=== PATIENT | male | born 1965 | race Caucasian/White ===

== ENCOUNTER 2019-02-14 23:03 | Inpatient (IN) | payer OTHER, MEDICAID ==
[~2019-02-14] VITALS: Ht 167.6 cm; Wt 70.1 kg
[~2019-02-14 23:03] MED LIST: AMITRIPTYLINE50 MG PO; CYCLOBENZAPRINE10 MG PO; MAG SALT PO; NAPROSYN500 MG PO; TOPAMAX25 M3 PO
[2019-02-14 23:05] VITALS: BP 203/126
[2019-02-14 23:20] VITALS: BP 217/177
[2019-02-14 23:44] VITALS: BP 156/105
[2019-02-14 23:45] LABS: BASO # 0.1 10*3/uL (0.0-0.1); BASO % 0.8 % (0.0-1.0); EOS # 0.4 10*3/uL (0.0-0.4); EOS % 3.2 % (1.0-4.0); HEMATOCRIT 42.2 % (42.0-52.0); HEMOGLOBIN 14.2 g/dl (14.0-18.0); LYMPH # 3.1 10*3/uL (1.3-4.4); LYMPH % 24.8 % (27.0-41.0); MEAN CELL VOLUME 94.4 fl (80.0-94.0); MEAN CORPUSCULAR HGB 31.8 pg (27.0-31.0); MEAN CORPUSCULAR HGB CONC 33.6 g/dl (33.0-37.0); MEAN PLATELET VOLUME 10.6 fl (9.6-12.3); MONO # 1.4 10*3/uL (0.1-1.0); MONO % 10.7 % (3.0-9.0); NEUT # 7.6 10*3/uL (2.3-7.9); NEUT % 60.1 % (47.0-73.0); PLATELET COUNT AUTOMATED 254 10*3/uL (130-400); RED BLOOD COUNT 4.47 10*6/uL (4.50-5.90); RED CELL DISTRI WIDTH 14.2 % (0-14.5); WHITE BLOOD COUNT 12.7 10*3/uL (4.8-10.8)
[2019-02-14 23:56] LABS: ACT PARTIAL THROMBO TIME 24.8 SECONDS (20.0-32.1); INTERNATIONAL NORM RATIO 0.9 (2.0-3.5)
[2019-02-15 00:01] LABS: ALBUMIN 3.7 gm/dl (3.1-4.5); ALKALINE PHOSPHATASE 92 U/L (45-117); BUN 25 mg/dl (7-24); CHLORIDE 111 mmol/L (98-107); CREATININE 1.37 mg/dL (0.70-1.30); POTASSIUM 3.8 mmol/L (3.5-5.1); SGOT/AST 17 IU/L (3-35); SGPT/ALT 26 U/L (12-78); SODIUM 141 mmol/L (136-145); TOTAL PROTEIN 7.2 gm/dL (6.4-8.2)
[2019-02-15 00:02] LABS: TROPONIN I < 0.015 ng/ml (<0.045)
[2019-02-15 00:11] VITALS: BP 164/108
[2019-02-15 00:22] VITALS: BP 164/92
--- NOTE | 2019-02-15 01:15 | NUR ---
A 53, admitted to 5E, under the services of STACI Moreno DO with a diagnosis of CHEST PAIN. Chief complaint is CHEST PAIN. Patient arrived via stretcher from ER. Monitor applied. Initial assessment completed. Vital signs taken and recorded. STACI MORENO DO notified of admission to the unit. Orders received. See assessment for past medical history, medications and allergies. Clothing/patient valuable form completed. EMILY RAMIREZ
--- NOTE | 2019-02-15 01:52 | NUR ---
UNABLE TO VERIFY PTS HOME MEDS AT THIS TIME. PT DOES NOT KNOW DOSAGE AND FREQUENCY OF MEDS. PT USES [facility]. WILL NEED TO CALL PHARMACY IN AM.
--- NOTE | 2019-02-15 01:58 | NUR ---
PT MEDICATED WITH PRN MORPHINE 12/10 AT THIS TIME. WILL CHECK EFFECTIVENESS. CALL LIGHT WITHIN REACH. WILL CONTINUE TO MONITOR.
--- NOTE | 2019-02-15 02:15 | NUR ---
PT STATES MORPHINE WAS SOMEWHAT EFFECTIVE RATING PAIN A 6/10. CALL LIGHT WITHIN REACH. WILL CONTINUE TO MONITOR.
--- NOTE | 2019-02-15 02:43 | NUR ---
ANSWERING SERVICE CALLED AT THIS TIME REGARDING CONSULT.
--- NOTE | 2019-02-15 05:20 | NUR ---
RIHC WILBURN [id number] Please refer to the physician's history and physical for past medical history, comorbid conditions, and allergies. Diagnosis: CHEST PAIN Hussein Score: , WOUND DESCRIPTIONS: Wound Number: 1 Location of the wound: right 2nd toe Thickness: Partial Size: 0.3cm x 0.2cm x <0.1cm Tunneling: none Undermining: none Sinus Tract: none Presence of Exudate: none Amount: None Color: Red Odor: None Periwound Skin Appearance: Normal Wound edges: approximated Pain (associated with wound): none at time of assessment How does patient state this happened? pt stated this comes and goes Surface the patient is resting on: Isoflex SKIN PREVENTION RECOMMENDATION: 1. Pressure redistribution support surface as appropriate 2. Elevate heels 3. Remove boots/TEDS every shift and reapply 4. Head of bed 30 degrees as tolerated 5. Assess nutrition and hydration 6. Manage moisture 7. Avoid the use of containment devices while in bed 8. Use absorptive products on surfaces limit layers of linens on bed 9. Turn and reposition every 1-2 hours in bed and every 1 hour in chair as tolerated 10. Weight shifts every 15 minutes while up in chair 11. Offloading with pillows or device to keep heels elevated off bed 12. Monitor skin at least every shift 13. Inspect under medical devices twice a day WOUND TREATMENT RECOMMENDATIONS: Partial thickness guidelines: Cleanse right 2nd toe with nss and apply sureprep around wound hydrogel to wound and cover with bandaid. Venous and arterial studies to bilateral lower extremities due to non-healing wound.
--- NOTE | 2019-02-15 05:32 | NUR ---
PT REFUSING WOUND PICTURES.
[2019-02-15 05:42] LABS: ALBUMIN 3.4 gm/dl (3.1-4.5); ALKALINE PHOSPHATASE 86 U/L (45-117); BUN 23 mg/dl (7-24); CHLORIDE 112 mmol/L (98-107); CHOLESTEROL 196 mg/dL (<200); CREATININE 1.07 mg/dL (0.70-1.30); FREE T4 0.95 ng/dl (0.76-1.46); HDL CHOLESTEROL 36 mg/dl (40-60); LDL CHOLESTEROL 142 mg/dL (9-159); PHOSPHOROUS 3.4 mg/dL (2.5-4.9); POTASSIUM 4.1 mmol/L (3.5-5.1); SGOT/AST 13 IU/L (3-35); SGPT/ALT 22 U/L (12-78); SODIUM 141 mmol/L (136-145); TOTAL PROTEIN 6.7 gm/dL (6.4-8.2); TRIGLYCERIDES 89 mg/dl (<150); VLDL CHOLESTEROL 18 mg/dL (6-40)
--- NOTE | 2019-02-15 05:53 | NUR ---
PT CO BACK AND NECK PAIN 10/10 MEDICATED WITH PRN NORCO. WILL CHECK EFFECTIVENESS. CALL LIGHT WITHIN REACH. WILL CONTINUE TO MONITOR.
[2019-02-15 06:08] LABS: BASO # 0.1 10*3/uL (0.0-0.1); BASO % 0.8 % (0.0-1.0); EOS # 0.4 10*3/uL (0.0-0.4); EOS % 3.7 % (1.0-4.0); HEMATOCRIT 41.2 % (42.0-52.0); HEMOGLOBIN 13.8 g/dl (14.0-18.0); LYMPH % 27.7 % (27.0-41.0); MEAN CELL VOLUME 95.8 fl (80.0-94.0); MEAN CORPUSCULAR HGB 32.1 pg (27.0-31.0); MEAN CORPUSCULAR HGB CONC 33.5 g/dl (33.0-37.0); MEAN PLATELET VOLUME 10.7 fl (9.6-12.3); MONO # 1.3 10*3/uL (0.1-1.0); MONO % 11.7 % (3.0-9.0); NEUT # 6.1 10*3/uL (2.3-7.9); NEUT % 55.9 % (47.0-73.0); PLATELET COUNT AUTOMATED 236 10*3/uL (130-400); RED CELL DISTRI WIDTH 14.4 % (0-14.5)
--- NOTE | 2019-02-15 06:50 | NUR ---
PT STATES PAIN MED WAS EFFECTIVE RATING PAIN 4/10. CALL LIGHT WITHIN REACH. WILL CONTINUE TO MONITOR.
[2019-02-15 06:58] LABS: ACT PARTIAL THROMBO TIME 25.6 SECONDS (20.0-32.1); INTERNATIONAL NORM RATIO 0.9 (2.0-3.5)
[2019-02-15 07:25] LABS: VITAMIN D, 25-HYDROXY 24.2 ng/mL (30-100)
[2019-02-15 08:00] VITALS: BP 124/66
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
[2019-02-15 12:00] VITALS: BP 132/70
--- NOTE | 2019-02-15 12:07 | NUR ---
INFORMED SIGNED CONSENT OBTAINED FOR LEXISCAN STRESS TEST WITH DR ANGEL. RESTING EKG SINUS BRADYCARIDA HR 64 NSR BP 118/88. PULSE OX 99% LUNGS CLEAR. PT COMPLETED ONE MINUTE OF A LEXISCAN PROTOCOL WITH PT RECEIVING LEXISCAN 0.4MG IV OVER 10 SECONDS. NO ARRHYTHMIAS OR ST CHANGES NOTED. PT C/O SOB WITH INJECTION. LAST RECOVERY HR OF 87 BP 118/86. PT IN STABLE CONDITION, AWAITING NUCLEAR IMAGES.
--- NOTE | 2019-02-15 12:23 | NUR ---
PATIENT NOT AVAILABLE FOR ECHO.
[2019-02-15] MEDS ORDERED: AMITRIPTYLINE25 MG PO (13:17)
[2019-02-15] MEDS ORDERED: Depakote500 MG PO (13:18)
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
[2019-02-15 16:00] VITALS: BP 143/72
--- NOTE | 2019-02-15 16:00 | NUR ---
DR HOLT HERE TO SEE PT.
--- NOTE | 2019-02-15 16:21 | NUR ---
MEDICATED WITH PO TYLENOL ORDERED PER PT REQUEST FOR C/O HEADACHE.
--- NOTE | 2019-02-15 17:24 | NUR ---
24 HR chart check completed.
--- NOTE | 2019-02-15 18:50 | NUR ---
MEDICATION SOMEWHAT EFFECTIVE FOR HEADACHE.
[2019-02-15 20:00] VITALS: BP 102/66
[2019-02-15 20:21] LABS: BILIRUBIN NEGATIVE (NEGATIVE); BLOOD 2+ (NEGATIVE); CLARITY CLEAR (CLEAR); COLOR YELLOW (YELLOW); GLUCOSE NEGATIVE (NEGATIVE); KETONE NEGATIVE (NEGATIVE); LEUKO ESTERASE NEGATIVE (NEGATIVE); NITRITE NEGATIVE (NEGATIVE); SPECIFIC GRAVITY 1.025 (1.005-1.030); UROBILINOGEN 0.2 E.U./dl (0.2-1.0)
[2019-02-15 20:28] LABS: MUCOUS 1+; WBC 0-2 wbc/hpf (0-5)
--- NOTE | 2019-02-15 22:45 | NUR ---
PATIENT C/O CHEST PAIN WITH SUDDEN ONSET IN A NEW AREA THEN PREVIOUSLY REPORTED. PAIN LOCATED ON LEFT SIDE RADIATING TO LEFT ARM. ORDERS RECEIVED FOR EKG, TROPONIN X1. PAIN WILL BE MANAGED WITH NORCO AND GI COCKTAIL GIVEN IN CASE PAIN IS GI RELATED.
[2019-02-16] VITALS: BP 132/63
[2019-02-16 12:00] VITALS: BP 107/63
--- NOTE | 2019-02-16 12:13 | NUR ---
Insulation Helper in to talk to patient. Patient states lives at HOME with FIANCE. There are NO steps in the home. Physician: MIKEY TAPIA Pharmacy: [facility] services: NONE Patient's level of ADLs: INDEPENDENT Patient has working utilities: YES DME: NONE Follow-up physician's appointment after d/c: WILL BE MADE BY HOSPITALIST NURSE DIRECTOR ON DISCHARGE Does patient want to access PORTAL?: NO Discharge plan PT LIVES AT HOME AND IS INDEPENDENT IN CARE. DENIES NEEDS ON DISCHARGE. CAN BE DISCHARGED TO HOME WHEN MEDICALLY STABLE. WILL CONTINUE TO FOLLOW. WILL HAVE A RIDE HOME. PER [place] MEETING THIS AM PT IS FOR EGD WEDNESDAY. . DELIA ROMAN
[2019-02-16] MEDS ORDERED: PROTONIX40 MG PO (15:30)
[2019-02-16] MEDS ORDERED: DIVALPROEX SOD250 M1 PO (15:30)
--- NOTE | 2019-02-16 15:43 | NUR ---
DISCHARGE INSTRUCTIONS REVIEWED. HEPLOCK REMOVED. PT INSTRUCTED THAT SURGERY WILL CALL HIM IN THE AM WITH FURTHER INSTRUCTIONS FOR EGD SCHEDULED TOMORROW WITH DR. HOLT.
--- NOTE | 2019-02-16 17:03 | NUR ---
PT MEDICATED WITH PRN ATIVAN FOR C/O INCREASED ANXIETY R/T ALCOHOL WITHDRAWL. WILL MONITOR.
--- NOTE | 2019-02-16 17:20 | NUR ---
PT DISCHARGED HOME AT THIS TIME. [id number] INSTRUCTIONS AND PRESCRIPTIONS PROVIDED.
== END 2019-02-16 17:20 | disposition home or self-care (01) | DRG 205 ==
LOC: ED 23:03 → 5E 02-15 00:42 → EDHOLD 02-15 00:42 → 5E 02-15 00:43
PROVIDERS: Emergency Medicine; Internal Medicine; ADMIT Internal Medicine
PROC: 4A02XM4 Measurement of Cardiac Total Activity, External Approach (ICD-10-PCS; principal; 2019-02-15)
PROC: 3E073KZ Introduction of Other Diagnostic Substance into Coronary Artery, Percutaneous Approach (ICD-10-PCS; principal; 2019-02-15)
DX: M94.0 Chondrocostal junction syndrome [Tietze] (principal); N17.0 Acute kidney failure with tubular necrosis; I16.1 Hypertensive emergency; E86.0 Dehydration; D72.825 Bandemia; R73.9 Hyperglycemia, unspecified; D50.9 Iron deficiency anemia, unspecified; I25.10 Atherosclerotic heart disease of native coronary artery without angina pectoris; R07.89 Other chest pain; R73.03 Prediabetes; I10 Essential (primary) hypertension; G40.909 Epilepsy, unspecified, not intractable, without status epilepticus; F17.219 Nicotine dependence, cigarettes, with unspecified nicotine-induced disorders; E78.5 Hyperlipidemia, unspecified; Z71.6 Tobacco abuse counseling; Z88.6 Allergy status to analgesic agent; Z88.1 Allergy status to other antibiotic agents; Z88.8 Allergy status to other drugs, medicaments and biological substances; Z82.49 Family history of ischemic heart disease and other diseases of the circulatory system; Z83.3 Family history of diabetes mellitus; I25.2 Old myocardial infarction